=== PATIENT | male | born 1955 | race Hispanic/Latino ===

== ENCOUNTER → 2021-07-31 | Day surgery (SDC) | payer OTHER ==
[~2021-07-31] MED LIST: ASPIRIN81 MG PO; CRESTOR10 MG PO; FENTANYL CITRATE/PF 100MCG/2 ML INJ ONE; LISINOPRIL5 MG PO; MIDAZOLAM HCL 2 MG/2 ML VIAL ONE; OR PHACO EYE KIT ONE; PREOP PHACO EYE KIT ONE
[2021-07-31 16:30] VITALS: BP 135/88
== END | disposition home or self-care (01) ==
LOC: OR 12:32
PROVIDERS: ATTEND Ophthalmology
DX: H25.12 Age-related nuclear cataract, left eye (principal); H27.8 Other specified disorders of lens; I69.331 Monoplegia of upper limb following cerebral infarction affecting right dominant side; I10 Essential (primary) hypertension; Z79.82 Long term (current) use of aspirin; Z79.899 Other long term (current) drug therapy; Z86.16 Personal history of COVID-19
CPT/HCPCS: 66982; J2250; J3010; V2632